=== PATIENT | male | born 1940 | race Caucasian/White ===

== ENCOUNTER → 2018-03-04 | Day surgery (SDC) | payer MEDICARE ==
[~2018-03-04] VITALS: Ht 172.7 cm; Wt 131.5 kg
[~2018-03-04] MED LIST: BABY ASPIRIN81 MG PO; CENTRUM OR; DILT-XR240 MG PO; FISH OIL1000 MG PO; FLUZONE SPLT1 M1 IM; LISINOPRIL5 MG PO; LOVASTATIN20 MG PO; MAXZIDE-2537.5 MG/TA PO; OMEPRAZOLE20 MG PO; OSTEO BI-FLE OR; PRADAXA150 MG PO; VITAMI16 PO; VITAMIN B-121000 MCG PO
[2018-03-04 06:09] VITALS: BP 158/90
== END ==
LOC: ENDO 05:41
PROVIDERS: ATTEND Surgery
DX: Z12.11 Encounter for screening for malignant neoplasm of colon (principal); R00.0 Tachycardia, unspecified; Z53.09 Procedure and treatment not carried out because of other contraindication